=== PATIENT | male | born 1960 | race Two or more races ===

== ENCOUNTER 2021-10-29 06:28 | Day surgery (SDC) | payer BC, OTHER ==
[2021-10-28 10:57] VITALS: BMI 29.2
[~2021-10-29 06:28] MED LIST: VANCOMYCIN 1,000 MG VIAL (RESTRICTED TO ID ONLY) IVPB ONE
[2021-10-29] MEDS ORDERED: CEFAZOLIN 2 GM in DEXTROSE 5%-WATER - 50 ML IVPB ONE ×2 (07:14→07:42)
[2021-10-29] MEDS ORDERED: CELECOXIB 200 MG CAPSULE PO ONE (07:14)
[2021-10-29] MEDS ORDERED: TRANEXAMIC ACID 1000 MG/10 ML VIAL IVPUSH ONE ×2 (07:14)
[2021-10-29] MEDS ORDERED: CELECOXIB 200 MG CAPSULE ONE (07:15)
[2021-10-29] MEDS ORDERED: MIDAZOLAM HCL 2 MG/2 ML SINGLE DOSE VIAL ONE ×2 (08:22→09:10)
[2021-10-29] MEDS ORDERED: BUPIVACAINE LIPOSOME/PF (EXPAREL) 266 MG/20 ML VIAL ONE (08:22)
[2021-10-29] MEDS ORDERED: BUPIVACAINE HCL 50 ML ONE ×2 (08:23→09:07)
[2021-10-29] MEDS ORDERED: SODIUM CHLORIDE 0.9% P/F 10 ML VIAL IJ ONE (08:23)
[2021-10-29] MEDS ORDERED: BUPIVACAINE HCL/PF 0.5% (5 MG/ML) 30 ML VIAL IJ ONE (09:09)
[2021-10-29] MEDS ORDERED: PROPOFOL 20 ML ONE ×2 (09:10)
[2021-10-29] MEDS ORDERED: SUCCINYLCHOLINE CHLORIDE 200 MG/10 ML SYRINGE ONE (09:10)
[2021-10-29] MEDS ORDERED: VANCOMYCIN 1,000 MG VIAL (RESTRICTED TO ID ONLY) ONE (09:12)
[2021-10-29] MEDS ORDERED: ceFAZolin SODIUM 1 GM VIAL ONE ×3 (09:12→18:27)
[2021-10-29] MEDS ORDERED: ONDANSETRON 4 MG/2 ML VIAL ONE (09:47)
[2021-10-29] MEDS ORDERED: DEXAMETHASONE SOD PHOSPHATE 4 MG/1 ML VIAL ONE (09:47)
[2021-10-29] MEDS ORDERED: TRANEXAMIC ACID 1000 MG/10 ML VIAL ONE (09:47)
[2021-10-29] MEDS ORDERED: ONDANSETRON 4 MG/2 ML VIAL IVPUSH PRN ×2 (09:51→11:46)
[2021-10-29] MEDS ORDERED: MAG HYDROX/AL HYDROX/SIMETH 30 ML UNIT-DOSE CUP PO PRN (09:51)
[2021-10-29] MEDS ORDERED: PATIENT'S OWN MEDICATION (NON-FORMULARY) (Empagliflozin [Jardiance] 25 MG Tablet) PO SCH (10:00)
[2021-10-29] MEDS ORDERED: LACTATED RINGERS SOLUTION 1,000 ML IV SCH (10:00)
[2021-10-29] MEDS ORDERED: PATIENT'S OWN MEDICATION (NON-FORMULARY) (Fenofibrate Nanocrystallized [Fenofibrate] 145 M PO SCH (10:00)
[2021-10-29] MEDS ORDERED: VANCOMYCIN 1,000 MG VIAL (RESTRICTED TO ID ONLY) IVPB ONE (11:00)
[2021-10-29] MEDS: ACETAMINOPHEN 500 MG TABLET (FP) PO SCH ×2 (12:05→18:37)
[2021-10-29] MEDS: KETOROLAC TROMETHAMINE 30 MG/1 ML VIAL IVPUSH SCH ×2 (12:08→18:39)
[2021-10-29] MEDS: ATORVASTATIN CA 20 MG TABLET (FP) PO SCH (14:31)
[2021-10-29] MEDS: PANTOPRAZOLE 40 MG TABLET PO SCH (14:32)
[2021-10-29] MEDS: SENNOSIDES/DOCUSATE COMBO (SENNA PLUS) TABLET (UD) PO SCH ×2 (14:32→21:22)
[2021-10-29] MEDS: LISINOPRIL 10 MG TABLET PO SCH (14:32)
[2021-10-29] MEDS: MULTIVITAMINS (DAILY MVI) TABLET (FP) PO SCH (14:32)
[2021-10-29] MEDS: INSULIN SLIDING SCALE (NOVOLOG) 1 VIAL SQ SCH ×3 (14:33→21:26)
[2021-10-29] MEDS: oxyCODONE HCL 5 MG TABLET PO PRN ×2 (15:06→21:23)
[2021-10-29 17:05] LABS: HIV INTERPRETATION NEGATIVE (NEGATIVE)
[2021-10-29] MEDS ORDERED: DEXTROSE 5%-WATER - 50 ML IVPB ONE (18:27)
[2021-10-29] MEDS: CEFAZOLIN 2 GM in DEXTROSE 5%-WATER - 50 ML IVPB SCH (18:37)
[2021-10-29] MEDS: oxyCODONE HCL 10 MG SUSTAINED ACTING TABLET PO SCH (21:21)
[2021-10-30] MEDS ORDERED: DEXTROSE 5%-WATER - 50 ML IVPB ONE (00:04)
[2021-10-30] MEDS ORDERED: ceFAZolin SODIUM 1 GM VIAL ONE (00:04)
[2021-10-30] MEDS: CEFAZOLIN 2 GM in DEXTROSE 5%-WATER - 50 ML IVPB SCH (01:25)
[2021-10-30] MEDS: ACETAMINOPHEN 500 MG TABLET (FP) PO SCH ×4 (01:25→17:20)
[2021-10-30] MEDS: oxyCODONE HCL 5 MG TABLET PO PRN ×2 (05:40→17:19)
[2021-10-30] MEDS: INSULIN SLIDING SCALE (NOVOLOG) 1 VIAL SQ SCH ×3 (06:04→16:54)
[2021-10-30] MEDS ORDERED: sitaGLIPtin PHOSPHATE 50 MG TABLET PO SCH (07:00)
[2021-10-30] MEDS ORDERED: ASPIRIN 325 MG TABLET PO SCH (08:00)
[2021-10-30 08:22] LABS: CREATININE 0.8 mg/dl (0.55-1.3)
[2021-10-30 08:23] LABS: ALBUMIN 3.7 g/dl (3.4-5.0); BILIRUBIN,TOTAL 0.6 mg/dl (0.2-1); TOT PROT 5.8 g/dl (6.4-8.2)
[2021-10-30] MEDS: MULTIVITAMINS (DAILY MVI) TABLET (FP) PO SCH (09:53)
[2021-10-30] MEDS: PANTOPRAZOLE 40 MG TABLET PO SCH (09:53)
[2021-10-30] MEDS: LISINOPRIL 10 MG TABLET PO SCH (09:53)
[2021-10-30] MEDS: SENNOSIDES/DOCUSATE COMBO (SENNA PLUS) TABLET (UD) PO SCH (09:53)
[2021-10-30] MEDS: ATORVASTATIN CA 20 MG TABLET (FP) PO SCH (09:53)
[2021-10-30] MEDS: oxyCODONE HCL 10 MG SUSTAINED ACTING TABLET PO SCH (09:54)
[2021-10-30] MEDS ORDERED: FENOFIBRIC ACID 135 MG CAP PO SCH (10:00)
[2021-10-30 10:59] LABS: HEMATOCRIT 34.2 % (35.4-49); HEMOGLOBIN 11.9 GM/dL (11.7-16.9); MCHC 34.7 g/dl (32.0-35.9); MEAN CELL VOLUME 86.5 fl (80-96); MEAN PLT VOLUME 7.8 fl (7.5-11.1); PLATELET COUNT 219 10^3/uL (134-434); RBC 3.95 M/mm3 (4.00-5.60); RDW 13.1 % (11.9-15.9)
[2021-10-30 18:14] VITALS: BP 130/55; PULSE 74; TEMP 98.2
== END 2021-10-30 19:10 | disposition home health service (06) ==
LOC: UNDOADMIN 06:28 → FASUSAT 06:28 → FM/S 06:28 → EDSTATUS 08:00 → FM/S 12:39 → FASUSAT 10-30 19:10
PROVIDERS: ATTEND Orthopaedic Surgery
PROC: 8E0YXBZ Computer Assisted Procedure of Lower Extremity (ICD-10-PCS; 2021-10-29)
PROC: 8E0Y0CZ Robotic Assisted Procedure of Lower Extremity, Open Approach (ICD-10-PCS; 2021-10-29)
PROC: 0SRC0J9 Replacement of Right Knee Joint with Synthetic Substitute, Cemented, Open Approach (ICD-10-PCS; principal; 2021-10-29 09:56)
DX: M17.11 Unilateral primary osteoarthritis, right knee (principal); I10 Essential (primary) hypertension; E78.5 Hyperlipidemia, unspecified; E11.9 Type 2 diabetes mellitus without complications; Z79.84 Long term (current) use of oral hypoglycemic drugs
CPT/HCPCS: 20985; 27447; C1776; S2900; 36415; 73560-TC-RT-FY; 80053; 82962; 85027; 87389; 94760; 97010-GP; 97116-GP; 97161-GP

== ENCOUNTER 2022-03-11 06:54 | Day surgery (SDC) | payer BC, OTHER ==
[2022-02-26 14:14] VITALS: BMI 29.2
[2022-03-11] MEDS ORDERED: CELECOXIB 200 MG CAPSULE PO ONE (07:06)
[2022-03-11] MEDS ORDERED: ceFAZolin SODIUM 1 GM VIAL ONE ×2 (08:07→09:53)
[2022-03-11] MEDS ORDERED: VANCOMYCIN 1,000 MG VIAL (RESTRICTED TO ID ONLY) ONE (08:07)
[2022-03-11] MEDS ORDERED: SODIUM CHLORIDE 0.9% P/F 10 ML VIAL IJ ONE (08:57)
[2022-03-11] MEDS ORDERED: BUPIVACAINE HCL/PF 0.5% (5MG/ML) 10 ML VIAL ONE (08:57)
[2022-03-11] MEDS ORDERED: BUPIVACAINE LIPOSOME/PF (EXPAREL) 266 MG/20 ML VIAL ONE (08:57)
[2022-03-11] MEDS ORDERED: MIDAZOLAM HCL 2 MG/2 ML SINGLE DOSE VIAL ONE ×2 (08:57→09:55)
[2022-03-11] MEDS ORDERED: TRANEXAMIC ACID 1000 MG/10 ML VIAL IVPUSH ONE (09:30)
[2022-03-11] MEDS ORDERED: CEFAZOLIN 2 GM in DEXTROSE 5%-WATER - 50 ML IVPB ONE (09:30)
[2022-03-11] MEDS ORDERED: MAG HYDROX/AL HYDROX/SIMETH 30 ML UNIT-DOSE CUP PO PRN (09:35)
[2022-03-11] MEDS ORDERED: ONDANSETRON 4 MG/2 ML VIAL IVPUSH PRN ×2 (09:35→11:52)
[2022-03-11] MEDS ORDERED: LACTATED RINGERS SOLUTION 1,000 ML IV SCH (09:45)
[2022-03-11] MEDS ORDERED: TRANEXAMIC ACID 1000 MG/10 ML VIAL ONE (09:53)
[2022-03-11] MEDS ORDERED: ePHEDrine SULFATE 50 MG/1 ML AMPULE ONE (09:55)
[2022-03-11] MEDS ORDERED: PATIENT'S OWN MEDICATION (NON-FORMULARY) (Empagliflozin 25 MG Tablet) PO SCH (10:00)
[2022-03-11] MEDS ORDERED: PATIENT'S OWN MEDICATION (NON-FORMULARY) (Fenofibrate Nanocrystallized [Fenofibrate] 145 M PO SCH (10:00)
[2022-03-11] MEDS ORDERED: oxyCODONE HCL 5 MG TABLET PO PRN (11:52)
[2022-03-11] MEDS ORDERED: ACETAMINOPHEN 500 MG TABLET (FP) ONE (12:19)
[2022-03-11] MEDS: ACETAMINOPHEN 500 MG TABLET (FP) PO SCH ×3 (12:20→17:25)
[2022-03-11] MEDS: SENNOSIDES/DOCUSATE COMBO (SENNA PLUS) TABLET (UD) PO SCH ×2 (14:24→22:13)
[2022-03-11] MEDS: LISINOPRIL 10 MG TABLET PO SCH (14:24)
[2022-03-11] MEDS: INSULIN SLIDING SCALE (NOVOLOG) 1 VIAL SQ SCH ×2 (14:25→17:51)
[2022-03-11] MEDS: PANTOPRAZOLE 40 MG TABLET PO SCH (14:25)
[2022-03-11] MEDS: MULTIVITAMINS (DAILY MVI) TABLET (FP) PO SCH (14:25)
[2022-03-11] MEDS: oxyCODONE HCL 5 MG TABLET PO PRN ×2 (15:49→20:27)
[2022-03-11] MEDS ORDERED: CEFAZOLIN SODIUM 2 GM VIAL ONE ×2 (17:40→21:10)
[2022-03-11] MEDS ORDERED: SODIUM CHLORIDE 100 ML IVPB ONE ×2 (17:40→21:11)
[2022-03-11] MEDS: CEFAZOLIN SODIUM 2 GM in SODIUM CHLORIDE 100 ML IVPB SCH (17:52)
[2022-03-11] MEDS ORDERED: ATORVASTATIN CA 20 MG TABLET (FP) PO SCH (22:00)
[2022-03-12] MEDS ORDERED: CEFAZOLIN SODIUM 2 GM VIAL ONE ×3 (00:04→03:36)
[2022-03-12] MEDS ORDERED: SODIUM CHLORIDE 100 ML IVPB ONE ×3 (00:05→03:37)
[2022-03-12] MEDS: ACETAMINOPHEN 500 MG TABLET (FP) PO SCH ×3 (02:05→12:51)
[2022-03-12] MEDS: CEFAZOLIN SODIUM 2 GM in SODIUM CHLORIDE 100 ML IVPB SCH (02:05)
[2022-03-12] MEDS: oxyCODONE HCL 5 MG TABLET PO PRN ×4 (02:06→12:50)
[2022-03-12] MEDS: INSULIN SLIDING SCALE (NOVOLOG) 1 VIAL SQ SCH ×2 (06:07→12:52)
[2022-03-12] MEDS ORDERED: sitaGLIPtin PHOSPHATE 50 MG TABLET PO SCH (07:00)
[2022-03-12] MEDS ORDERED: ASPIRIN 325 MG TABLET PO SCH (08:00)
[2022-03-12 08:18] LABS: HEMATOCRIT 36.6 % (35.4-49); HEMOGLOBIN 12.6 G/dL (11.7-16.9); MCH 28.5 pg (25.7-33.7); MCHC 34.3 g/dl (32.0-35.9); MEAN PLT VOLUME 7.6 fl (7.5-11.1); PLATELET COUNT 222.1 10^3/uL (134-434); RBC 4.41 10^6/uL (4.00-5.60); RDW 15.4 % (11.9-15.9); WHITE BLOOD COUNT 8.8 10^3/uL (4.0-10.8)
[2022-03-12] MEDS: PANTOPRAZOLE 40 MG TABLET PO SCH (09:16)
[2022-03-12] MEDS: MULTIVITAMINS (DAILY MVI) TABLET (FP) PO SCH (09:16)
[2022-03-12] MEDS: LISINOPRIL 10 MG TABLET PO SCH (09:17)
[2022-03-12] MEDS ORDERED: FENOFIBRIC ACID 135 MG CAP PO SCH (10:00)
[2022-03-12 11:36] VITALS: BP 140/62; PULSE 96; TEMP 97.7
[2022-03-12] MEDS: SENNOSIDES/DOCUSATE COMBO (SENNA PLUS) TABLET (UD) PO SCH (12:52)
== END 2022-03-12 13:02 | disposition home health service (06) ==
LOC: FASUSAT 06:54 → FM/S 12:47 → FASUSAT 03-12 13:02
PROVIDERS: ATTEND Orthopaedic Surgery
PROC: 8E0YXBZ Computer Assisted Procedure of Lower Extremity (ICD-10-PCS; 2022-03-11)
PROC: 8E0Y0CZ Robotic Assisted Procedure of Lower Extremity, Open Approach (ICD-10-PCS; 2022-03-11)
PROC: 0SRD0JA Replacement of Left Knee Joint with Synthetic Substitute, Uncemented, Open Approach (ICD-10-PCS; principal; 2022-03-11 10:09)
DX: M17.12 Unilateral primary osteoarthritis, left knee (principal)
CPT/HCPCS: 20985; 27447; C1776; S2900; 36415; 73560-TC-LT-FY; 82962; 85027; 94760; 97010-GP; 97116-GP; 97162-GP